=== PATIENT | male | born 1970 | race American Indian/Alaskan Native ===

== ENCOUNTER 2017-08-16 18:54 | Emergency (ER) | payer SELFPAY ==
[2017-08-16] MEDS ORDERED: TYLENOL ONE (19:11)
[2017-08-16] MEDS ORDERED: TYLENOL PO ONE (19:15)
[2017-08-17] MEDS ORDERED: MOTRIN ONE (00:53)
[2017-08-17] MEDS ORDERED: MOTRIN PO ONE (00:55)
--- NOTE | 2017-08-17 01:35 | Emergency Department Report ---
Minor Respiratory - HPI Chief Complaint: Upper Respiratory Infection Stated Complaint: COUGH, SORETHROAT Time Seen by Provider: 08/17/17 01:19 Duration: 2 Days Pain Location: Throat Severity: severe Minor Respiratory: Yes Rhinorrhea, Yes Sore Throat, Yes Able to Tolerate Fluids , Yes Cough, Yes Sick Contacts (children), Yes Fever, No Ear Pain, No Hemoptysis , No Chest Pain, No Shortness of Breath Other History: This is a 46 y.o. male that presents with fever, sore throat, cough, and bodyaches for 2 days. Patient reports children where sick 2 weeks ago with the flu. He is taking tylenol and theraflu for symptoms with no improvement. Patient spouse reports difficulty swallowing at times but able to hold food and liquids down. Denies chest pain, SOB, nausea/vomiting, and abdominal pain. ED Review of Systems ROS: Stated complaint: COUGH, SORETHROAT Other details as noted in HPI Constitutional: fever. denies: chills, malaise, weakness ENT: throat pain, congestion. denies: ear pain, dental pain, hearing loss, epistaxis Respiratory: cough. denies: shortness of breath, SOB with exertion, wheezing Cardiovascular: denies: chest pain, palpitations Gastrointestinal: denies: abdominal pain, nausea, vomiting, diarrhea, hematochezia Musculoskeletal: myalgia (body aches generalized). denies: back pain, joint swelling, arthralgia Neurological: denies: headache, weakness, numbness, paresthesias Psychiatric: denies: anxiety, depression ED Past Medical Hx - Past Medical History Previous Medical History?: No - Surgical History Past Surgical History?: No - Social History Smoking Status: Current Every Day Smoker Substance Use Type: None - Medications Home Medications: Home Medications Medication Instructions Recorded Confirmed Last Taken Type Ibuprofen [Motrin] 800 mg PO Q8H PRN #30 tablet 11/08/14 Unknown Rx Prednisone 10 mg PO QDAY #3 tablet 11/08/14 Unknown Rx Ibuprofen 800 mg PO Q6H PRN #20 tablet 08/17/17 Unknown Rx Penicillin V Potassium 500 mg PO BID 10 Days #20 tablet 08/17/17 Unknown Rx Minor Respiratory Exam - Exam General: Vital signs noted. No distress. Alert and acting appropriately. HEENT: Yes Pharyngeal Erythema, Yes Pharyngeal Exudates (tonsils swollen and red with exudate), Yes Moist Mucous Membranes, Yes Rhinorrhea, No Conjuctival Injection, No Frontal Tenderness, No Maxillary Tenderness Ear: Neither TM Bulge, Neither TM Erythema, Neither EAC Pain, Neither EAC Discharge Neck: Yes Supple, No Adenopathy Lungs: Yes Good Air Exchange, Yes Cough, No Wheezes, No Ronchi, No Stridor, No Labored Respirations, No Retractions, No Use of Accessory Muscles, No Other Abnormal Lung Sounds Heart: Yes Regular, No Murmur Abdomen: Yes Normal Bowel Sounds, No Tenderness, No Peritoneal Signs Skin: No Rash, No Edema Neurologic: Alert and oriented, no deficits. Musculoskeletal: Unremarkable. ED Course Vital Signs 08/16/17 08/16/17 08/16/17 19:13 19:16 20:33 Temperature 102.8 F H 101.5 F H Pulse Rate 115 H 112 H Respiratory 18 18 18 Rate Blood Pressure 128/92 136/82 O2 Sat by Pulse 97 97 Oximetry ED Medical Decision Making - Medical Decision Making This is a 46 y.o. male that presents with sore throat, fever, body aches, and cough for 2 days. Patient examined by me and stable. No distress noted. Rapid strep and flu obtained and positive for strep A. Temp 102.8. Given tylenol 650 mg po once in ER. Temp 101.0. Given ibuprofen 800 mg po once in ER, temp trending down. Start penicillin V 500 mg po bid x 10 days. Take tylenol or ibuprofen for pain. Discussed plan with patient and he agreed with plan to treat outpatient. Discharged home. Return to work tomorrow. Follow up with PCP in 48-72 hours. Critical care attestation.: If time is entered above; I have spent that time in minutes in the direct care of this critically ill patient, excluding procedure time. ED Disposition Clinical Impression: Strep pharyngitis, Sore throat Disposition: -01 TO HOME OR SELFCARE Is pt being admited?: No Does the pt Need Aspirin: No Condition: Stable Instructions: Strep Throat (ED) Additional Instructions: Expect symptoms to improve within 3 or 4 days. There is no need for bed rest or isolation. Use tyleonl or ibuprofen for symptoms of sore throat, headache, and fever. Return to work in 24 hours of taking antibiotics. Follow up with Primary Care Provider in 48-72 hours. Prescriptions: Ibuprofen 800 mg PO Q6H PRN #20 tablet PRN Reason: Pain Penicillin V Potassium 500 mg PO BID 10 Days #20 tablet Referrals: [facility] [place][Note 3] [Outside] - 3-5 Days [facility] [Outside] - 3-5 Days [facility] [Outside] - 3-5 Days Forms: Work/School Release Form(ED), Accompanied Note Time of Disposition: 03:06 Print Language: INDONESIAN
[2017-08-17] MEDS ORDERED: VEETIDS PO ONE (02:58)
[2017-08-17 03:44] VITALS: BP 117/84
== END 2017-08-17 03:20 | disposition home or self-care (01) ==
LOC: ED 18:54
DX: J02.0 Streptococcal pharyngitis (principal); F17.200 Nicotine dependence, unspecified, uncomplicated
CPT/HCPCS: 87400; 87430; 99283

== ENCOUNTER 2021-02-20 10:38 | Emergency (ER) | payer BC ==
[2021-02-20 10:54] VITALS: BP 140/92
--- NOTE | 2021-02-20 11:22 | Emergency Department Report ---
ED Dizziness HPI - General Chief Complaint: Dizziness Stated Complaint: LIGHT HEADED/DIZZINESS Time Seen by Provider: 02/20/21 11:02 Source: patient Mode of arrival: Ambulatory Limitations: No Limitations - History of Present Illness Initial Comments: Patient reports feeling lightheaded and dizzy for the last couple of days. It was worse today. He almost fell over while at work. He seems notices more when he bends over to pick something up and then stands up. He states that he feels like the room is spinning and that he is off balance. There has not been any recent head trauma. Has had no recent URIs symptoms. He has no cough or congestion. There is no vomiting or diarrhea. He states that the symptoms are not nearly as intense when he is sitting still. He decided to come here because he almost fell at work. Patient states he has never had symptoms like this before. - Related Data Previous Rx's Medication Instructions Recorded Last Taken Type Ibuprofen [Motrin] 800 mg PO Q8H PRN #30 tablet 11/08/14 Unknown Rx predniSONE [Prednisone] 10 mg PO QDAY #3 tablet 11/08/14 Unknown Rx Ibuprofen [Ibuprofen 800] 800 mg PO Q6H PRN #20 tablet 08/17/17 Unknown Rx Penicillin V Potassium 500 mg PO BID 10 Days #20 tablet 08/17/17 Unknown Rx Meclizine [Antivert] 25 mg PO TID PRN #30 tablet 02/20/21 Unknown Rx Allergies Allergy/AdvReac Type Severity Reaction Status Date / Time No Known Allergies Allergy Unverified 11/08/14 12:00 ED Review of Systems ROS: Stated complaint: LIGHT HEADED/DIZZINESS Other details as noted in HPI Comment: All other systems reviewed and negative Constitutional: denies: fever Eyes: denies: vision change ENT: denies: ear pain Respiratory: denies: cough Cardiovascular: denies: chest pain Endocrine: denies: unexplained weight loss Gastrointestinal: denies: nausea, vomiting Genitourinary: denies: dysuria Musculoskeletal: denies: back pain Skin: denies: rash Neurological: denies: headache Hematological/Lymphatic: denies: easy bruising ED Past Medical Hx - Past Medical History Previous Medical History?: Yes Hx Hypertension: Yes - Surgical History Past Surgical History?: No - Family History Family history: hypertension - Social History Smoking Status: Current Every Day Smoker Substance Use Type: None - Medications Home Medications: Home Medications Medication Instructions Recorded Confirmed Last Taken Type Ibuprofen [Motrin] 800 mg PO Q8H PRN #30 tablet 11/08/14 Unknown Rx predniSONE [Prednisone] 10 mg PO QDAY #3 tablet 11/08/14 Unknown Rx Ibuprofen [Ibuprofen 800] 800 mg PO Q6H PRN #20 tablet 08/17/17 Unknown Rx Penicillin V Potassium 500 mg PO BID 10 Days #20 tablet 08/17/17 Unknown Rx Meclizine [Antivert] 25 mg PO TID PRN #30 tablet 02/20/21 Unknown Rx ED Physical Exam - General Limitations: No Limitations, Other ( Pulse ox is noted and normal. Is not hypoxic.) General appearance: alert, in no apparent distress - Head Head exam: Present: atraumatic, normocephalic - Eye Eye exam: Present: normal appearance, PERRL, EOMI. Absent: scleral icterus - ENT ENT exam: Present: normal exam, normal orophraynx, normal external ear exam, other ( Right cerumen impaction. Left TM is clear.) - Neck Neck exam: Present: normal inspection. Absent: meningismus - Respiratory Respiratory exam: Present: normal lung sounds bilaterally. Absent: respiratory distress - Cardiovascular Cardiovascular Exam: Present: regular rate, normal rhythm - GI/Abdominal GI/Abdominal exam: Present: soft. Absent: tenderness - Extremities Exam Extremities exam: Present: normal capillary refill. Absent: pedal edema - Back Exam Back exam: Absent: CVA tenderness (R), CVA tenderness (L) - Neurological Exam Neurological exam: Present: alert, oriented X3, CN II-XII intact, normal gait, reflexes normal, other ( No pronator drift or dysdiadochokinesia. NIH score is 0.). Absent: motor sensory deficit - Psychiatric Psychiatric exam: Present: normal affect, normal mood - Skin Skin exam: Present: warm, dry ED Course Vital Signs 02/20/21 10:52 Temperature 98.6 F Pulse Rate 62 Respiratory 16 Rate Blood Pressure 140/92 O2 Sat by Pulse 99 Oximetry - Reevaluation(s) Reevaluation #1: 02/20/21 11:21 Orthostatics were ordered. Accu-Chek and Debrox were ordered. ED Medical Decision Making - Medical Decision Making Patient was not hypoglycemic or orthostatic. Earwax have been removed. There was no clear evidence of otitis. Patient was subsequently discharged. He does not have neurologic symptoms suggestive of stroke and has an NIH score of 0. Critical Care Time: No Critical care attestation.: If time is entered above; I have spent that time in minutes in the direct care of this critically ill patient, excluding procedure time. ED Disposition Clinical Impression: Dizziness, Right ear impacted cerumen Disposition: HOME / SELF CARE / HOMELESS Is pt being admited?: No Condition: Stable Instructions: Dizziness, Ear Irrigation Additional Instructions: Drink plenty water. Return for problems. Follow-up with your regular doctor for recheck. Prescriptions: Meclizine [Antivert] 25 mg PO TID PRN #30 tablet PRN Reason: Vertigo
[2021-02-20] MEDS ORDERED: CARBAMIDE PEROXIDE 6.5% OTIC DROPS 15 ML AD NR (11:30)
== END 2021-02-20 14:31 | disposition home or self-care (01) ==
LOC: ED 10:38
DX: H61.21 Impacted cerumen, right ear (principal); R42 Dizziness and giddiness; I10 Essential (primary) hypertension; F17.200 Nicotine dependence, unspecified, uncomplicated
CPT/HCPCS: 82962; 99282; 99283